=== PATIENT | female | born 1955 | race Caucasian/White ===

== ENCOUNTER → 2016-11-29 | Day surgery (SDC) | payer BC ==
[~2016-11-29] MED LIST: ARIMIDEX1 MG PO; CALCIUM 600-D T1 TAB PO; CALTRATE 600+D; DESYREL50 M1 PO; LORTAB 101 TAB 10/5 PO; MOTRIN600 MG PO; RALOXIFENE HCL 60 MG; RED YEAST RICE600 MG PO; SYNTHROID0.05 MG PO; TRAZODONE PO; VITAMIN D 1000 MG; VITAMIN D1000 UNI1 PO
--- NOTE | ~2016-11-29 | OR ---
Unit #: [id number] #: [id number] Patient: KARISSA WASHINGTON [id number] [facility]. [address] [place], [place] [address] [id number] O MR#: [id number] NAME: KARISSA WASHINGTON ROOM: Date of Procedure: 11/29/2016 Admission Date: 11/29/2016 Surgeon: Joe Nuon Jr., M.D. : 1955 Attending Physician: Joe Nuno Jr., M.D. Primary Care Physician: Sariah Joseph M.D. OPERATIVE REPORT INDICATIONS FOR PROCEDURE The patient is a 61-year-old white female who recently presented to the office complaining of four separate skin lesions that appeared to be small basal cell cancers. She has had a past history for skin problems such as this and was felt these needed to be excised under local anesthesia. She is brought in this time at her request for this procedure. She understands the procedure including risks, including that of infection, recurrence, and poor healing and consents. PREOPERATIVE DIAGNOSIS Skin lesion of the right posterior forearm, the right anterior chest and the left posterior forearm x2. These were all approximately 1 cm in diameter. ANESTHESIA 1% Xylocaine with epinephrine locally. PROCEDURE PERFORMED Excision of four skin lesions described above. DESCRIPTION OF PROCEDURE The patient was positioned in supine position after being prepped and draped in routine fashion. In the area of the each of the skin lesions, she was locally anesthetized with 1% Xylocaine with epinephrine. Elliptical incisions were made around the lesions with at least 0.5 cm margin being taken at the closest margin. After all four lesions were removed, hemostasis was achieved with Bovie cautery and deeper tissue approximated with interrupted 3-0 Vicryl sutures. Skin edges approximated with stainless-steel skin clips and skin stapling device. The upper wound on the left forearm was under some tension and it was closed with 2 separate 2-0 nylon mattress stitches as well as stainless-steel skin clips. Sterile dressings were applied externally. Estimated blood loss minimal. No drains used. No complications. The patient was discharged in satisfactory condition. Dictated by... Joe Nuno Jr., M.D. JMB/roxanna Unit #: [id number] #: [id number] Patient: KARISSA WASHINGTON WILL TD: 11/29/2016 10:26 JOB #: [id number] OPERATIVE REPORT Page 1 of 1 X Joe Nuno MD PROCEDURE OPERATIVE NOTE
== END | disposition home or self-care (01) ==
LOC: CSUR 07:06
DX: C44.519 Basal cell carcinoma of skin of other part of trunk (principal); C44.619 Basal cell carcinoma of skin of left upper limb, including shoulder; Q82.8 Other specified congenital malformations of skin; L57.8 Other skin changes due to chronic exposure to nonionizing radiation; L57.0 Actinic keratosis; M81.0 Age-related osteoporosis without current pathological fracture; E89.0 Postprocedural hypothyroidism; E78.5 Hyperlipidemia, unspecified; E55.9 Vitamin D deficiency, unspecified; F41.1 Generalized anxiety disorder; F17.210 Nicotine dependence, cigarettes, uncomplicated; Z92.21 Personal history of antineoplastic chemotherapy; Z87.440 Personal history of urinary (tract) infections; Z86.010 Personal history of colon polyps; Z85.3 Personal history of malignant neoplasm of breast; Z88.5 Allergy status to narcotic agent; Z79.899 Other long term (current) drug therapy; Z90.710 Acquired absence of both cervix and uterus; Z90.11 Acquired absence of right breast and nipple; Z98.890 Other specified postprocedural states
CPT/HCPCS: 88305